=== PATIENT | male | born 1955 | race Hispanic/Latino ===

== ENCOUNTER → 2021-03-20 | Day surgery (SDC) | payer MEDICARE, OTHER ==
[~2021-03-20] MED LIST: AMLODIPINE BESIL1 GM; BENICAR20 MG PO; CRESTOR10 MG PO; DEXILANT30 MG; JARDIANCE25 MG; LACTULOSE20 GM/30 M PO; LEXAPRO10 MG PO; OR PHACO EYE KIT ONE; OZEMPIC0.25 MG/0. SC; PREOP PHACO EYE KIT ONE; PROPRANOLOL HCL20 MG; TRISEBA; XIFAXAN550 MG PO
[2021-03-20 14:10] VITALS: BP 117/69
== END | disposition home or self-care (01) ==
LOC: OR 11:35
PROVIDERS: ATTEND Ophthalmology
DX: H25.11 Age-related nuclear cataract, right eye (principal); E11.9 Type 2 diabetes mellitus without complications; I10 Essential (primary) hypertension; I25.10 Atherosclerotic heart disease of native coronary artery without angina pectoris; K74.60 Unspecified cirrhosis of liver; K76.6 Portal hypertension; K21.9 Gastro-esophageal reflux disease without esophagitis; K80.20 Calculus of gallbladder without cholecystitis without obstruction; Z01.812 Encounter for preprocedural laboratory examination; Z20.822 Contact with and (suspected) exposure to COVID-19
CPT/HCPCS: 36415; 66984; 82948; U0002; V2632